=== PATIENT | male | born 1985 | race Caucasian/White ===

== ENCOUNTER 2017-04-03 22:38 | Emergency (ER) | payer MEDICAID ==
[2016-07-29 22:29] VITALS: BMI 31.2
[~2017-04-03 22:38] MED LIST: FLAGYL500 MG PO; HYDROCODON-ACE1 EAC7 PO; LEVAQUIN500 MG PO
== END 2017-04-04 01:08 | disposition home or self-care (01) ==
LOC: D.ER 22:38
DX: R51 Headache (principal); F17.200 Nicotine dependence, unspecified, uncomplicated